=== PATIENT | male | born 1980 | race Caucasian/White ===

== ENCOUNTER 2024-03-18 08:52 | Outpatient (CLI) | payer BC, SELFPAY ==
--- NOTE | 2024-04-02 14:36 | WPDSLEEPSTUD ---
Sleep Study Date of Study: 03/18/24 Ordering Provider: Maegan Pandey NP Interpreting Physician: Marisa Lei MD Sleep Study Type: Split Polysomnogram Height: 1.73 m Weight: 146.51 kg Body Mass Index: 49.1 Neck Circumference (inches): 18.5 [place]iken: 20 Reason for Sleep Study Hypersomnolence; known YEISON; * 11/25/2019- BiPAP titration optimal pressure 28/24 with a large N20 AirFit nasal mask and chinstrap and heated humidity; BMI was 47 * 08/16/2029- home sleep test; AHI 83.3 with desaturation to 45% He restarted BiPAP at 28/24 cm water pressure March,. Due to a problem with his insurance, he had to give up his machine. He returns for re-evaluation. BMI is now 49, higher. Sleep History Donavon Ledezma is a 43-year-old man with hypertension, anxiety and depression. He has a family history of sleep apnea, other family members have this diagnosis. He has known sleep apnea, was on BiPAP 2 years ago however due to a problem with his insurance, he had to give up his machine. He returns for re-evaluation. He occasionally awakens at night feeling short of breath. He rarely awakens at night with heartburn, belching or coughing. ?He constantly snores, frequently snores loudly enough that others complain. He constantly has trouble sleeping when he has a cold. He frequently wakes up gasping for breath during the night. He frequently has breathing problems at night. He occasionally sweats excessively at night. He frequently notices his heart pounding or beating irregularly during the night. He occasionally falls asleep during the day. He occasionally falls asleep involuntarily, rarely falls asleep while driving. He never experiences loss of muscle tone with strong emotion. He frequently has daytime difficulty at work due to excessive sleepiness. He occasionally feels paralyzed on waking or falling asleep. He occasionally experiences vivid dreams upon waking or falling asleep. He occasionally feels afraid of going to sleep. He occasionally has nightmares. He occasionally recalls his dreams. He frequently has thoughts racing through his mind. He occasionally feels sad or depressed. He frequently feels anxiety. He occasionally notices parts of his body jerk. He occasionally kicks during the night. He occasionally feels crawling or aching feelings in his legs. He occasionally feels leg pain at night. He occasionally has morning jaw pain, never grinds his teeth at night. He occasionally feels bothered by pain during the day, never awakened by pain during the night. He never wakes up feeling stiff in the morning, and he never wakes feeling sore or achy. He never awakens with pain in his neck, spine, or joints. Normal bedtime is 10:00 p.m., typically waking up between 2 and 4 times during the night for unclear reasons. This occurs in the middle of the night. It may take him 15 minutes or up to an hour to return to sleep. While awake he just sits up. His normal wake time is 6:00 a.m.. He keeps the same schedule on weekends. He estimates getting between 5 and 6 hours of sleep at night. He does not take naps. A short nap lasting 10-15 minutes is not refreshing. He is usually drowsy for an hour after waking. Habits:??Tobacco: Never smoker Caffeine: 4-5 servings per day Alcohol: None Recreational substances: None PMFSH Past Medical History Medical History (Updated 04/02/24 @ 14:46 by Marisa Lei MD) Acute bronchitis Anxiety and depression Chronic pain of right knee Cutaneous candidiasis Dyshidrotic eczema hands Elevated glucose Encounter for prostate cancer screening PSA 0.94 on 10/09/2021. Essential (primary) hypertension Milia of eyelid Morbid obesity with BMI of 45.0-49.9, adult Morbid obesity with BMI of 50.0-59.9, adult YEISON (obstructive sleep apnea) Family History Family History (Updated 04/02/24 @ 14:47 by Marisa Lei MD) Mother Family history of hypercholesterolemia
[2024-04-02 14:51] VITALS: BMI 49.1
== END 2024-03-19 05:51 | disposition home or self-care (01) ==
LOC: ANHCSM 08:57
PROVIDERS: PCP Family Medicine; Visit Provider Nurse Practitioner Family
DX: G47.33 Obstructive sleep apnea (adult) (pediatric) (principal); Z68.42 Body mass index [BMI] 45.0-49.9, adult
CPT/HCPCS: 95811